=== PATIENT | female | born 1980 | race Caucasian/White ===

== ENCOUNTER 2017-09-22 20:31 | Emergency (ER) | payer OTHER ==
[2017-09-22 20:40] VITALS: BP 128/68; PULSE 86; TEMP 98.2; BMI 37.3
--- NOTE | 2017-09-22 20:44 | PDOC ---
History of Present Illness - General Chief Complaint: Vaginal Bleeding Stated Complaint: BLEEDING Time Seen by Provider: 09/22/17 20:44 History Source: Patient Exam Limitations: No Limitations - History of Present Illness Travel History: No Initial Comments: 09/22/17 21:25 Best Contact:[phone] PCP:Clinic Pmhx:N/A Pshx:N/A Allergies:NKDA FH:N/A Social Hx: Cigarettes/ 0 Alcohol/ 0 Drugs/0 LMP:07/18/2017 37-year-old female presents to the ER complaining of vaginal mild to moderate bleeding 20 minutes prior to her arrival without fever, chills, nausea/vomiting /diarrhea, weakness, neck pains, back pains, chest pain, shortness of breath, abdominal pains, bladder pressure, flank pains, urinary symptoms: Frequency/ urgency/hesitancy, hematuria. Past History - Past Medical History Allergies/Adverse Reactions: Allergies Allergy/AdvReac Type Severity Reaction Status Date / Time No Known Drug Allergies Allergy Verified 09/22/17 20:40 Home Medications: Ambulatory Orders Pnv with Ca,No.71/Iron/FA [ Vitamin Tablet] 1 each PO DAILY 02/20/13 Asthma: No Cancer: No Cardiac Disorders: No Diabetes: No HTN: No Seizures: No Thyroid Disease: No - Suicide/Smoking/Psychosocial Hx Smoking History: Never smoked Have you smoked in the past 12 months: No Information on smoking cessation initiated: No Hx Alcohol Use: No Drug/Substance Use Hx: No Hx Substance Use Treatment: No Review of Systems - Review of Systems Able to Perform ROS?: Yes Comments:: 09/22/17 21:31 CONSTITUTIONAL: Absent: fever, chills, diaphoresis, generalized weakness, malaise, loss of appetite HEENT: Absent: rhinorrhea, nasal congestion, throat pain, throat swelling, difficulty swallowing, mouth swelling, ear pain, eye pain, visual Changes CARDIOVASCULAR: Absent: chest pain, loss of consciousness, palpitations, irregular heart rate, peripheral edema RESPIRATORY: Absent: cough, shortness of breath, dyspnea with exertion, orthopnea, wheezing, stridor, hemoptysis GASTROINTESTINAL: Absent: abdominal pain, abdominal distension, nausea, vomiting, diarrhea, constipation, melena, hematochezia GENITOURINARY: +vaginal bleed Absent: dysuria, frequency, urgency, hesitancy, hematuria, flank pain, genital pain MUSCULOSKELETAL: Absent: myalgia, arthralgia, joint swelling SKIN: Absent: rash, itching, pallor HEMATOLOGIC/IMMUNOLOGIC: Absent: easy bleeding, easy bruising, lymphadenopathy, frequent infections ENDOCRINE: Absent: unexplained weight gain, unexplained weight loss, heat intolerance, cold intolerance Is the patient limited Bel[place]an proficient: No *Physical Exam - Vital Signs Last Vital Signs Temp Pulse Resp BP Pulse Ox 98.2 F 86 16 128/68 100 09/22/17 20:38 09/22/17 20:38 09/22/17 20:38 09/22/17 20:38 09/22/17 20:38 - Physical Exam Comments: 09/22/17 21:31 GENERAL: Well developed, well nourished. Awake and alert. No acute distress. HEENT: Normocephalic, atraumatic. PERRLA, EOMI. No conjunctival pallor. Sclera are non- icteric. Moist mucous membranes. Oropharynx is clear. NECK: Supple. Full ROM. No JVD. Carotid pulses 2+ and symmetric, without bruits. No thyromegaly. No lymphadenopathy. CARDIOVASCULAR: Regular rate and rhythm. No murmurs, rubs, or gallops. Distal pulses are 2+ and symmetric. PULMONARY: No evidence of respiratory distress. Lungs clear to auscultation bilaterally. No wheezing, rales or rhonchi. ABDOMINAL: Soft. Non-tender. Non-distended. No rebound or guarding. No organomegaly. Normoactive bowel sounds. MUSCULOSKELETAL Normal range of motion at all joints. No bony deformities or tenderness. No CVA tenderness. EXTREMITIES: No cyanosis. No clubbing. No edema. No calf tenderness. SKIN: Warm and dry. Normal capillary refill. No rashes. No jaundice. NEUROLOGICAL: Alert, awake, appropriate. Cranial nerves 2-12 intact. No deficits to light touch and temperature in face, upper extremities and lower extremities. No motor deficits in the in face, upper extremities and lower extremities. Normoreflexic in the upper and lower extremities. Normal speech. Toes are down- going bilaterally. Gait is normal without ataxia. PSYCHIATRIC: Cooperative. Good eye contact. Appropriate mood and affect. Pelvic: External genitalia normal without lesions. Vaginal vault is clear without blood or discharge. Cervix is long and closed. ED Treatment Course - LABORATORY CBC & Chemistry Diagram: 09/22/17 20:43 09/22/17 20:43 - RADIOLOGY Radiograph Interpretation: 09/22/17 23:22 Transvaginal ultrasound There is a single live intrauterine . Estimated gestation age is 8 weeks and 2 days. heart rate is 165 bpm. No cul-de-sac effusion. There is intact blood flow demonstrated to the ovaries. Arterial and venous spectra waveforms demonstrated. There is no evidence of torsion. Progress Note - Progress Note Progress Note: Patient is A- therefore she will be receiving program 1500 IUs this evening *DC/Admit/Observation/Transfer Diagnosis at time of Disposition: Threatened , Need for rhogam due to Rh negative mother - Discharge Dispostion Disposition: HOME Condition at time of disposition: Stable Decision to Admit order: No - Referrals Referrals: Feliciano Andrew MD [Staff Physician] - - Patient Instructions Printed Discharge Instructions: DI for Threatened Additional Instructions: Pelvic rest Increase fluids Be sure to follow-up with the requisition approver or the one listed on your discharge within 48 hours/ Dr. Andrew [phone] Return back to the emergency department for severe/persistent or worsening [place] [address].4 - Post Discharge Activity
--- NOTE | 2017-09-22 20:50 | PDOC ---
*Physical Exam - Vital Signs Last Vital Signs Temp Pulse Resp BP Pulse Ox 98.2 F 86 16 128/68 100 09/22/17 20:38 09/22/17 20:38 09/22/17 20:38 09/22/17 20:38 09/22/17 20:38 - Physical Exam Comments: 09/22/17 20:50 The patient was examined by [CHAPARRO Murrieta] under my direct supervision. I personally evaluated the patient. I concur with the above findings and the plan of care.
[2017-09-22 21:03] LABS: BASO % 0.2 % (0-2.0); EOS % 0.9 % (0-4.5); HEMATOCRIT 34.1 % (32.4-45.2); HEMOGLOBIN 11.6 GM/dL (10.7-15.3); LYMPH % 17.7 % (8-40); MCHC 34.1 g/dl (32.0-36.0); MEAN CELL VOLUME 84.8 fl (80-96); MEAN PLT VOLUME 8.1 fl (7.5-11.1); MONO % 7.4 % (3.8-10.2); NEUT % 73.8 % (42.8-82.8); PLATELET COUNT 341 K/MM3 (134-434); RBC 4.02 M/mm3 (3.60-5.2); RDW 14.6 % (11.6-15.6); WHITE BLOOD COUNT 11.5 K/mm3 (4.0-10.0)
[2017-09-22 21:29] LABS: ALBUMIN 3.6 g/dl (3.4-5.0); ANION GAP 9 (8-16); BILIRUBIN,TOTAL 0.3 mg/dL (0.2-1.0); BLOOD UREA NITROGEN 7 mg/dL (7-18); CALCIUM 8.8 mg/dL (8.5-10.1); CHLORIDE 103 mmol/L (98-107); CO2 24 mmol/L (21-32); CREATININE 0.5 mg/dL (0.55-1.02); GLUCOSE,RANDOM 84 mg/dL (74-106); POTASSIUM 3.6 mmol/L (3.5-5.1); SGOT/AST 18 U/L (15-37); SGPT/ALT 21 U/L (12-78); SODIUM 136 mmol/L (136-145); TOT PROT 7.6 g/dl (6.4-8.2)
[2017-09-22 21:44] LABS: ALK PHOS 92 U/L (45-117)
[2017-09-22] MEDS ORDERED: RHO(D) IMMUNE GLOBULIN 1,500 UNIT DISP.SYRIN IM ONE (23:26)
== END 2017-09-22 23:59 | disposition home or self-care (01) ==
LOC: JER 20:31
PROC: 3E023GC Introduction of Other Therapeutic Substance into Muscle, Percutaneous Approach (ICD-10-PCS; principal; 2017-09-22)
DX: O20.0 Threatened abortion (principal); Z3A.08 8 weeks gestation of pregnancy; O36.0111 Maternal care for anti-D [Rh] antibodies, first trimester, fetus 1
CPT/HCPCS: 36415; 76801-TC; 80053; 84702; 85025; 86850; 86900; 86901; 86999; 99281-25; J1561

== ENCOUNTER 2018-04-29 06:55 | Inpatient (IN) | payer OTHER ==
[2018-04-29 08:19] VITALS: BMI 42.4
[2018-04-29] MEDS ORDERED: CITRIC ACID/SODIUM CITRATE 30 ML UNIT-DOSE CUP PO ONE (08:25)
[2018-04-29] MEDS ORDERED: ELECTROLYTE-148 SOLN 1,000 ML IV SCH (08:30)
--- NOTE | 2018-04-29 08:30 | HP ---
Past Medical History - Admission Chief Complaint: RLTCS, BTL History of Present Illness: 38yo @ 39+wks here for RLTCS, BTL No VB/LOF. No ctx. +FM Preg c/b AMA, h/o C/S x 2 History Source: Patient Limitations to Obtaining History: Language Barrier - Past Medical History MEDICAL CLAIMS PROCESSOR: No: Alzheimer's, CVA, Dementia, Migraine, Multiple Sclerosis, Peripheral Neuropathy, Parkinson's, Seizure, Syncope, TIA, Vertigo, Other Cardiovascular: No: AFIB, Aneurysm, Aortic Insufficiency, Aortic Stenosis, CAD, CHF, Deep Vein Thrombosis, HTN, Hyperlipdemia, IN, Mitral Insufficiency, Mitral Stenosis, Murmur, Pulmonary Hypertension, Other Pulmonary: No: Asthma, Bronchitis, Cancer, COPD, O2 Dependent, Pneumonia, Previously Intubated, Pulmonary Embolus, Pulmonary Fibrosis, Sleep Apnea, Other Gastrointestinal: No: Ascites, Cancer, Constipation, Crohn's Disease, Diverticulitis, Diverticulosis, Esophageal Varices, Gastritis, GERD, GI Bleed, Hemorrhoids, Hiatal Hernia, Inflamatory Bowel Disease, Irritable Bowel Disease, Pancreatitis, Peptic Ulcer Disease, Ulcerative Colitis, Other ...: 4 ...Para: 2 ...Term: 2 ...: 0 ...Spon : 1 ...Induced : 0 ...Multiple Gestation: 0 ...LMP: 07/18/17 ... Weeks Gestation by Dates: 40.2 ...EDC by Dates: 04/27/18 ...EDC by Sono: 05/02/18 Heme/Onc: No: Anemia, B12 Deficiency, Bleeding Disorder, Cancer, Current Chemotherapy, Current Radiation Therapy, Hemochromatosis, Hypercoaguable State, Myeloproliferative Synd, Sickle Cell Disease, Sickle Cell Trait, Thrombocytopenia, Other Infectious Disease: No: AIDS, C-Diff, Herpes Zoster, HIV, MRSA, STD's, Tuberculosis, VREF, Other Psych: No: Addictions, Anxiety, Bipolar, Depression, Panic, Psychosis, Schizophrenia, Other Musculoskeletal: No: Bursitis, Chronic low back pain, Hemiparesis, Hemiplegia, Osteoarthritis, Paraplegia, Other Rheumatology: No: Fibromyalgia, Gout, Lupus, Rheumatoid Arthritis, Sarcoidosis, Vasculitis, Other ENT: No: Allergic Rhinitis, Sinusitis, Other - Past Surgical History Past Surgical History: Yes: Hx Myomectomy: No Hx Transabdominal Cerclage: No - Smoking History Smoking history: Never smoked Have you smoked in the past 12 months: No - Alcohol/Substance Use Hx Alcohol Use: No History of Substance Use: reports: None - Social History Usual Living Arrangement: Yes: Alone Home Medications - Allergies Allergies/Adverse Reactions: Allergies Allergy/AdvReac Type Severity Reaction Status Date / Time No Known Drug Allergies Allergy Verified 09/22/17 20:40 - Home Medications Home Medications: Ambulatory Orders Pnv with Ca,No.71/Iron/FA [ Vitamin Tablet] 1 each PO DAILY 02/20/13 Review of Systems - Review of Systems Constitutional: denies: No Symptoms, Chills, Diaphoresis, Fever, Lethargy, Loss of Appetite, Malaise, Night Sweats, Unintentional Wgt. Loss, Weakness, Other Cardiovascular: denies: No Symptoms, Chest Pain, Edema, Palpitations, Shortness of Breath, Other Gastrointestinal: denies: No Symptoms, Abdominal Pain, Bloating, Constipation, Diarrhea, Dysphagia, Indigestion, Melena, Nausea, Rectal Bleeding, Vomiting, Vomiting Blood, Other Genitourinary: denies: No Symptoms, Burning, Discharge, Dysuria, Flank Pain, Frequency, Hematuria, Incontinence, Lesions, Menses, Pain, Testicular Mass, Testicular Pain, Testicular Swelling, Urgency, Vaginal Bleeding, Other Physical Exam - Maternity Vital Signs: Vital Signs Temperature 98.5 F 04/29/18 07:19 Pulse Rate 89 04/29/18 07:19 Respiratory Rate 20 04/29/18 07:19 Blood Pressure 136/84 04/29/18 07:19 O2 Sat by Pulse Oximetry (%) Constitutional: Yes: Well Nourished Eyes: Yes: WNL - Abdominal Exam/OB Number of Fetuses: Single Presentation: Vertex Contractions: No Category: I Accelerations: Uniform Decelerations: None - Vaginal Exam/OB Vaginal Bleediing: No Speculum Exam: No Amniotic Membrane Status: Intact Presentation: Vertex/Position - Physical Exam Edema: No Assessment/Plan 38yo @ 39+wks here for RLTCS, BTL Admit to L&D NPO, IVFs Labs Ancef RIsk of procedure discussed including bleeding, infection, injury to surrounding tissue. Permanency of tubal ligation. Julia Parrish MD
[2018-04-29] MEDS ORDERED: morphine SULFATE/Preservative Free 0.5 MG/ML (1cc Syringe) ONE (10:04)
[2018-04-29] MEDS ORDERED: ceFAZolin SODIUM 1 GM VIAL ONE (10:18)
[2018-04-29] MEDS ORDERED: OXYTOCIN 10 UNITS/ML VIAL ONE (10:27)
[2018-04-29] MEDS ORDERED: OXYTOCIN 20 UNITS in 0.9% NS 20 UNIT/1,000 ML INFUS.BAG IV ONE (10:54)
[2018-04-29] MEDS ORDERED: IBUPROFEN 800 MG/8 ML IJ IVPB PRN (11:09)
[2018-04-29] MEDS ORDERED: METHYLERGONOVINE MALEATE 0.2 MG/1 ML AMP IM PRN (11:09)
--- NOTE | 2018-04-29 11:24 | OP ---
Operative Note - Note: Operative Date: 04/29/18 Pre-Operative Diagnosis: Prior , 39wks, Desires permanent sterilization Operation: RLTCS, BTL Findings: VMI, LOT, No nuchal or meconium. Apgars 9/9 Weight 8.0lbs. Normal tubes and ovaries. Post-Operative Diagnosis: Same as Pre-op Surgeon: Meli Parrish Almond Grinder: Emir Leong Anesthesia: Spinal Estimated Blood Loss (mls): 600 Operative Report Dictated: Yes
[2018-04-29] MEDS: ONDANSETRON 4 MG/2 ML VIAL IVPUSH PRN (11:49)
--- NOTE | 2018-04-29 14:26 | OP ---
DATE OF OPERATION: 04/29/2018 PREOPERATIVE DIAGNOSES: Prior section, a 39-week gestation, desires permanent sterilization. POSTOPERATIVE DIAGNOSES: Prior section, a 39-week gestation, desires permanent sterilization. PROCEDURE: Repeat low transverse section, bilateral tubal ligation. SURGEON: Meli Parrish MD BICYCLE SUBASSEMBLER: CHAPARRO Champagne ANESTHESIA: Spinal. ESTIMATED BLOOD LOSS: 600. IV FLUIDS: Per anesthesia record. URINE OUTPUT: 100 mL of clear urine at the end of the procedure. FINDINGS: Viable male , LOT position. No nuchal, no meconium. Weight 8 pounds even. Apgars 9, 9. Normal tubes and ovaries bilaterally. COMPLICATIONS: None. CONDITION: Stable to recovery. DESCRIPTION OF PROCEDURE: After appropriate consents were signed, the patient was taken to the operating room where spinal anesthesia was administered. She was placed in supine position. Liu catheter was inserted. The abdomen was prepped and draped in the normal sterile fashion. A time-out was performed confirming correct patient and procedure. A Pfannenstiel skin incision was made with a scalpel through to prior incision and carried through to the underlying layers until the fascia was nicked in the midline. The fascia was then extended bilaterally with the Bonilla scissors. The inferior aspect of the fascia was grasped with a Jelena clamp, tented upward, and the rectus muscles were dissected off bluntly and then manually with the Bonilla scissors. Attention was then paid to the superior aspect, which was taken down in a similar fashion. The muscles were in the midline with a scalpel. The peritoneum was then identified and entered bluntly. Bladder blade was inserted. The uterus was then incised in a low transverse fashion. Clear amniotic fluid was noted. The hysterotomy was extended manually. The infant's head was delivered without difficulty as were the shoulders and remaining body. The cord was clamped and cut, and the was handed off to the pediatric staff. The placenta was removed manually. The uterus was cleared of all clot and debris. The hysterotomy was prepared in a single layer with 0 Vicryl with good hemostasis. Attention was then paid to the adnexa for tubal ligation. The uterus was exteriorized, and the right fallopian tube was identified, grasped with a [place], and carried through to the fimbriated ends. The tube was then suture ligated with a 0 plain suture. Tubal segment was removed with the Metzenbaum scissors, and the tubal stumps were cauterized with the Bovie and noted to be hemostatic. Attention was then paid to the left fallopian tube, which was taken down in a similar fashion. There was bleeding after removal of the tubal stump. The area was then grasped with a Tammy clamp and then again suture ligated with another 0 Vicryl, which achieved hemostasis. The uterus and tubes were returned to the abdominal cavity. The hysterotomy was inspected and noted to be hemostatic. The tubal stumps were then revisualized and also noted to be hemostatic. The muscle was closed with 2-0 chromic. The fascia was closed with 0 Vicryl. The skin was closed with kp. Sponge, lap, and needle counts were correct x3. The patient was given Ancef at the start of the procedure. She tolerated the procedure well and was taken to the recovery room in stable condition. MD JAQUELIN RODRIGUEZ/[id number]
[2018-04-29] MEDS: OXYTOCIN 20 UNITS in 0.9% NS 20 UNIT/1,000 ML INFUS.BAG IV SCH (20:49)
[2018-04-29] MEDS: FERROUS SO4 325 MG TABLET (FP) PO SCH (22:11)
[2018-04-30] MEDS: OXYTOCIN 20 UNITS in 0.9% NS 20 UNIT/1,000 ML INFUS.BAG IV SCH (04:41)
[2018-04-30] MEDS: ONDANSETRON 4 MG/2 ML VIAL IVPUSH PRN (06:10)
--- NOTE | 2018-04-30 08:20 | PN ---
Progress Note (short form) - Note Progress Note: Anesthesia Post op/Pain Pt seen and examined S:Alert and awake comfortable O: Vital Signs Temperature 100.7 F H 04/30/18 06:00 Pulse Rate 109 H 04/30/18 06:00 Respiratory Rate 18 04/30/18 07:00 Blood Pressure 142/71 04/30/18 06:00 O2 Sat by Pulse Oximetry (%) 100 04/29/18 12:30 A/P S/P c section Doing well post op Carlton Frank MD
[2018-04-30 08:26] LABS: HEMATOCRIT 27.3 % (32.4-45.2); HEMOGLOBIN 9.6 GM/dL (10.7-15.3); LYMPH % 4.7 % (8-40); MCH 30.3 pg (25.7-33.7); MCHC 35.1 g/dl (32.0-36.0); MEAN CELL VOLUME 86.5 fl (80-96); MEAN PLT VOLUME 9.4 fl (7.5-11.1); MONO % 4.5 % (3.8-10.2); NEUT % 90.8 % (42.8-82.8); PLATELET COUNT 240 K/MM3 (134-434); RBC 3.16 M/mm3 (3.60-5.2); RDW 16.1 % (11.6-15.6); WHITE BLOOD COUNT 10.1 K/mm3 (4.0-10.0)
--- NOTE | 2018-04-30 09:17 | PN ---
Post Progress Note Post Day: 1 Type of Delivery: Repeat C/S Vital Signs: Vital Signs Temperature 100.1 F H 04/30/18 09:14 Pulse Rate 111 H 04/30/18 09:14 Respiratory Rate 20 04/30/18 09:14 Blood Pressure 135/82 04/30/18 09:14 O2 Sat by Pulse Oximetry (%) 100 04/29/18 12:30 Breast Exam: Yes: Soft Uterus: Yes: Fundus Firm Incision: Yes: Dressing dry and intact Abdomen/GI: Yes: Abdomen soft Lochia: Yes: Rubra Lochia, amount: Small Extremities: Yes: Calves non-tender Perineum: Yes: Intact Activity: Ambulating Assessment/Plan check labs oob reg diet pain control
[2018-04-30] MEDS: PRENATAL VITAMINS W/ FOLIC ACID TABLET (FP) PO SCH (09:46)
[2018-04-30] MEDS: FERROUS SO4 325 MG TABLET (FP) PO SCH ×2 (09:46→23:43)
[2018-04-30] MEDS ORDERED: BISACODYL 10 MG SUPP.RECT RC PRN (11:09)
[2018-04-30] MEDS: oxyCODONE HCL 5 MG TABLET PO PRN ×2 (11:20→23:43)
[2018-04-30] MEDS: ACETAMINOPHEN 325 MG TABLET (FP) PO PRN ×3 (11:21→23:44)
[2018-04-30] MEDS: SIMETHICONE 80 MG TAB.CHEW (FP) PO PRN ×3 (11:22→23:43)
[2018-04-30] MEDS: IBUPROFEN 600 MG TABLET (FP) PO PRN ×2 (15:16→23:43)
[2018-05-01] MEDS: OXYTOCIN 20 UNITS in 0.9% NS 20 UNIT/1,000 ML INFUS.BAG IV SCH (02:28)
[2018-05-01] MEDS: oxyCODONE HCL 5 MG TABLET PO PRN ×2 (03:48→15:41)
[2018-05-01] MEDS: SIMETHICONE 80 MG TAB.CHEW (FP) PO PRN ×3 (03:48→21:25)
[2018-05-01] MEDS: ACETAMINOPHEN 325 MG TABLET (FP) PO PRN ×3 (03:48→21:24)
[2018-05-01] MEDS: IBUPROFEN 600 MG TABLET (FP) PO PRN ×3 (03:48→21:24)
--- NOTE | 2018-05-01 07:13 | PN ---
Post Progress Note - Subjective Subjective: c/o pain scale 4/10 passing flatus bm not done Post Day: 2 Type of Delivery: Repeat C/S Vital Signs: Vital Signs Temperature 99.0 F 04/30/18 22:00 Pulse Rate 95 H 04/30/18 22:00 Respiratory Rate 18 04/30/18 22:00 Blood Pressure 133/87 04/30/18 22:00 O2 Sat by Pulse Oximetry (%) 100 04/29/18 12:30 Breast Exam: Yes: Soft, Other (Bf , no milk yet ). No: Engorged Uterus: Yes: Fundus Firm, Fundus below umbilicus, Non-tender Incision: Yes: Dressing dry and intact (to be removed ). No: Oozing Abdomen/GI: Yes: Abdomen soft, Abdominal Distention (obese abdomen . BSactive ) , Passing flatus, Tolerating PO (diet ) Lochia: Yes: Rubra Lochia, amount: Moderate Extremities: Yes: Calves non-tender, Edema (2+/2+ ) Perineum: Yes: Intact Activity: Ambulating - Labs Labs: CBC WBC 10.1 K/mm3 (4.0-10.0) H 04/30/18 07:10 RBC 3.16 M/mm3 (3.60-5.2) L 04/30/18 07:10 Hgb 9.6 GM/dL (10.7-15.3) L 04/30/18 07:10 Hct 27.3 % (32.4-45.2) L 04/30/18 07:10 MCV 86.5 fl (80-96) 04/30/18 07:10 MCH 30.3 pg (25.7-33.7) 04/30/18 07:10 MCHC 35.1 g/dl (32.0-36.0) 04/30/18 07:10 RDW 16.1 % (11.6-15.6) H 04/30/18 07:10 Plt Count 240 K/MM3 (134-434) 04/30/18 07:10 MPV 9.4 fl (7.5-11.1) 04/30/18 07:10 Absolute Neuts (auto) 9.1 K/mm3 (1.5-8.0) H 04/30/18 07:10 Neutrophils % 90.8 % (42.8-82.8) H 04/30/18 07:10 Lymphocytes % 4.7 % (8-40) L D 04/30/18 07:10 Monocytes % 4.5 % (3.8-10.2) 04/30/18 07:10 Eosinophils % 0.0 % (0-4.5) D 04/30/18 07:10 Basophils % 0.0 % (0-2.0) 04/30/18 07:10 Nucleated RBC % 0 % (0-0) 04/30/18 07:10 Problem List - Problems (1) delivery delivered Code(s): O82 - ENCOUNTER FOR DELIVERY WITHOUT INDICATION (2) Morbidly obese Code(s): E66.01 - MORBID (SEVERE) OBESITY DUE TO EXCESS CALORIES (3) Encounter for care after planned out of hospital delivery Code(s): Z39.2 - ENCOUNTER FOR ROUTINE FOLLOW-UP Assessment/Plan s/p repeat c/s btl , obese , stable Plan dulcolax suppository , if BM not done encourage deep breathing, ambulation & po fluids
[2018-05-01] MEDS: FERROUS SO4 325 MG TABLET (FP) PO SCH ×2 (10:44→21:24)
[2018-05-01] MEDS: PRENATAL VITAMINS W/ FOLIC ACID TABLET (FP) PO SCH (10:44)
[2018-05-01] MEDS ORDERED: DIPHTH,PERTUSS(ACELL),TET 0.5 ML DISP.SYRIN IM ONE (19:30)
--- NOTE | 2018-05-02 08:01 | PN ---
Post Progress Note - Subjective Subjective: Pain controlled. No flatus. Has been ambulating in the room but not the hallway Post Day: 3 Type of Delivery: Repeat C/S Vital Signs: Vital Signs Temperature 97.0 F L 05/01/18 20:35 Pulse Rate 89 05/01/18 20:35 Respiratory Rate 20 05/01/18 20:35 Blood Pressure 153/91 05/01/18 20:35 O2 Sat by Pulse Oximetry (%) 100 04/29/18 12:30 Uterus: Yes: Fundus Firm, Fundus above umbilicus Incision: Yes: Dressing dry and intact, Parminder intact Abdomen/GI: Yes: Abdomen soft, Other (+bowel sounds) Lochia: Yes: Rubra Lochia, amount: Small Extremities: Yes: Calves non-tender Perineum: Yes: Intact Activity: Ambulating - Labs Labs: CBC WBC 10.1 K/mm3 (4.0-10.0) H 04/30/18 07:10 RBC 3.16 M/mm3 (3.60-5.2) L 04/30/18 07:10 Hgb 9.6 GM/dL (10.7-15.3) L 04/30/18 07:10 Hct 27.3 % (32.4-45.2) L 04/30/18 07:10 MCV 86.5 fl (80-96) 04/30/18 07:10 MCH 30.3 pg (25.7-33.7) 04/30/18 07:10 MCHC 35.1 g/dl (32.0-36.0) 04/30/18 07:10 RDW 16.1 % (11.6-15.6) H 04/30/18 07:10 Plt Count 240 K/MM3 (134-434) 04/30/18 07:10 MPV 9.4 fl (7.5-11.1) 04/30/18 07:10 Absolute Neuts (auto) 9.1 K/mm3 (1.5-8.0) H 04/30/18 07:10 Neutrophils % 90.8 % (42.8-82.8) H 04/30/18 07:10 Lymphocytes % 4.7 % (8-40) L D 04/30/18 07:10 Monocytes % 4.5 % (3.8-10.2) 04/30/18 07:10 Eosinophils % 0.0 % (0-4.5) D 04/30/18 07:10 Basophils % 0.0 % (0-2.0) 04/30/18 07:10 Nucleated RBC % 0 % (0-0) 04/30/18 07:10 Assessment/Plan 38yo s/p RLTCS, BTL, POD#3 Routine PP care Labs reviewed Encouraged more ambulation Anticipate d/c to home today if she passes flatus, if not, POD#4 Julia Parrish MD
[2018-05-02 08:06] LABS: BASO % 0.1 % (0-2.0); EOS % 1.9 % (0-4.5); HEMATOCRIT 22.4 % (32.4-45.2); HEMOGLOBIN 7.6 GM/dL (10.7-15.3); LYMPH % 9.9 % (8-40); MCH 30.1 pg (25.7-33.7); MCHC 34.1 g/dl (32.0-36.0); MEAN CELL VOLUME 88.4 fl (80-96); MEAN PLT VOLUME 8.6 fl (7.5-11.1); MONO % 7.3 % (3.8-10.2); NEUT % 80.8 % (42.8-82.8); PLATELET COUNT 237 K/MM3 (134-434); RBC 2.54 M/mm3 (3.60-5.2); RDW 16.7 % (11.6-15.6); WHITE BLOOD COUNT 7.8 K/mm3 (4.0-10.0)
[2018-05-02] MEDS: FERROUS SO4 325 MG TABLET (FP) PO SCH (10:18)
[2018-05-02] MEDS: PRENATAL VITAMINS W/ FOLIC ACID TABLET (FP) PO SCH (10:18)
[2018-05-02 15:03] VITALS: BP 150/90; PULSE 92; TEMP 98.9
--- NOTE | 2018-05-06 10:56 | DS ---
Physical Examination Vital Signs: Vital Signs Temperature 98.9 F 05/02/18 10:00 Pulse Rate 92 H 05/02/18 10:00 Respiratory Rate 20 05/02/18 10:00 Blood Pressure 150/90 05/02/18 10:00 O2 Sat by Pulse Oximetry (%) 100 04/29/18 12:30 Constitutional: Yes: Well Nourished, No Distress, Calm Eyes: Yes: WNL, Conjunctiva Clear, EOM Intact HENT: Yes: WNL, Atraumatic, Normocephalic Neck: Yes: WNL, Supple, Trachea Midline Cardiovascular: Yes: WNL, Regular Rate and Rhythm Respiratory: Yes: WNL, Regular, CTA Bilaterally Gastrointestinal: Yes: WNL, Normal Bowel Sounds Musculoskeletal: Yes: WNL Extremities: Yes: WNL Edema: No Integumentary: Yes: WNL Neurological: Yes: WNL, Alert, Oriented ...Motor Strength: WNL Psychiatric: Yes: WNL Labs: CBC, BMP 05/02/18 06:30 Discharge Summary Reason For Visit: REPEAT C SECTION Procedures: Principal: RLTCS, BTL Hospital Course: Patient presented for RLTCS, BTL She underwent an uncomplicated RLTCS and BTL She met all postoperative milestones and was discharged home on POD#3 Meli Parrish MD Condition: Stable - Instructions Diet, Activity, Other Instructions: Regular Diet Referrals: Meli Parrish MD [Staff Physician] - Disposition: HOME - Home Medications Comprehensive Discharge Medication List: Ambulatory Orders Pnv with Ca,No.71/Iron/FA [ Vitamin Tablet] 1 each PO DAILY 02/20/13 Ibuprofen 600 mg PO Q6H PRN #30 tablet 05/01/18 Oxycodone HCl/Acetaminophen [Percocet 5-325 mg Tablet -] 1 - 2 tab PO Q6H PRN # 15 tab MDD 4 05/01/18
--- NOTE | 2018-05-06 15:59 | PATH ---
Surgical Pathology Report Patient Name: MARISELA SU Med. Rec. #: [id number] /Age/Gender: 1980 (Age: 38) / F Account: [id number] Location: [facility] OBS/SIZE MAKER Taken: 04/29/2018 Received: 04/30/2018 Reported: 05/06/2018 Physicians: Meli Parrish Specimen(s) Received A: PLACENTA B: PORTION OF RIGHT FALLOPIAN TUBE C: PORTION OF LEFT FALLOPIAN TUBE Clinical History , x2, D&C 2013, cholecystectomy Final Diagnosis A. PLACENTA, SECTION: 629 G THIRD TRIMESTER PLACENTA WITH TRIVASCULAR UMBILICAL CORD AND UNREMARKABLE PLACENTAL MEMBRANES. B. FALLOPIAN TUBE, RIGHT, TUBAL LIGATION: FULL LUMINAL PORTION OF UNREMARKABLE FALLOPIAN TUBE. C. FALLOPIAN TUBE, LEFT, TUBAL LIGATION: FULL LUMINAL PORTION OF UNREMARKABLE FALLOPIAN TUBE. Electronically Signed Esperanza Medina M.D. Gross Description A. The specimen is received fresh labeled placenta and is a 629 gram, 13.5 x 16.0 x 3.3 cm. placenta with attached membranes and umbilical cord. The attached membranes are weeks, translucent with focal opacities and insert marginally. The umbilical cord measures 64 cm. in length and averages 2.0 cm. in diameter. The cord inserts eccentrically, 2.5 cm. to the nearest margin. No true knots or strictures are identified. Cut surface of the umbilical cord reveals 3 vessels and abundant Carlton's jelly. The surface is lacy blue with moderate fibrin deposition and appropriate caliber vessels. The maternal surface is red-brown with focal defects. Sectioning reveals red-brown, spongy parenchyma. No lesions are identified. Game Preserve Manager sections are submitted in three cassettes as follows: 1- membrane rolls and umbilical cord; 2-3- full thickness sections of placenta. B. Received in formalin labeled "portion of right fallopian tube," is a 0.7 cm in length portion of fallopian tube. No fimbria are present. The outer surface is weeks-tavarez and smooth. Sectioning reveals an unremarkable lumen. Game Preserve Manager sections are submitted in one cassette. C. See been formalin labeled "portion of left fallopian tube," is a 0.6 cm in length portion of fallopian tube. No fimbria are present. The outer surface is weeks-tavarez and smooth. Sectioning reveals an unremarkable lumen. The specimen is bisected and entirely submitted in one cassette. 05/03/2018 [facility]05/03/2018
== END 2018-05-02 15:30 | disposition home or self-care (01) | DRG 540 ==
LOC: JLDR 06:55 → J3W 12:30
PROVIDERS: ADMIT Obstetrics & Gynecology; ATTEND Obstetrics & Gynecology
PROC: 10D00Z1 Extraction of Products of Conception, Low, Open Approach (ICD-10-PCS; principal; 2018-04-29)
PROC: 0UB70ZZ Excision of Bilateral Fallopian Tubes, Open Approach (ICD-10-PCS; 2018-04-29)
PROC: 3E0334Z Introduction of Serum, Toxoid and Vaccine into Peripheral Vein, Percutaneous Approach (ICD-10-PCS; 2018-04-29)
DX: O34.211 Maternal care for low transverse scar from previous cesarean delivery (principal); N85.8 Other specified noninflammatory disorders of uterus; Z3A.39 39 weeks gestation of pregnancy; Z30.2 Encounter for sterilization; O99.213 Obesity complicating pregnancy, third trimester; E66.01 Morbid (severe) obesity due to excess calories; Z68.41 Body mass index [BMI] 40.0-44.9, adult; Z29.13 Encounter for prophylactic Rho(D) immune globulin; Z37.0 Single live birth
CPT/HCPCS: 36415; 85025; 85461; 86999; 88302-TC; 88307-TC; 90715

== ENCOUNTER 2018-05-07 17:28 | Emergency (ER) | payer OTHER ==
--- NOTE | 2018-05-07 17:36 | PDOC ---
Rapid Medical Evaluation Chief Complaint: Blood Pressure Problem Time Seen by Provider: 05/07/18 17:33 Medical Evaluation: Allergies Allergy/AdvReac Type Severity Reaction Status Date / Time No Known Drug Allergies Allergy Verified 09/22/17 20:40 05/07/18 17:34 I have performed a brief in person evaluation of this patient. The patient's CC: Hypertension HPI: Pt is a 38 YO female who delivered via C section on 04/29 and has HTN and LE edema. PE: Skin: Clear Heart: RRR Lungs: Clear MS. moves all extremities without difficulty Neuro: Alert and oriented Psch: appropriate affect Basic labs were ordered. The patient will proceed to main ED for further evaluation. Discharge Disposition - Diagnosis Hypertension Qualifiers: Hypertension type: unspecified Qualified Code(s): I10 - Essential (primary) hypertension - Referrals - Patient Instructions - Post Discharge Activity
[2018-05-07 17:38] VITALS: TEMP 99.2; BMI 39.6
[2018-05-07 18:13] LABS: BASO % 0.6 % (0-2.0); EOS % 2.7 % (0-4.5); HEMATOCRIT 27.2 % (32.4-45.2); HEMOGLOBIN 9.2 GM/dL (10.7-15.3); LYMPH % 10.9 % (8-40); MCH 29.9 pg (25.7-33.7); MCHC 33.8 g/dl (32.0-36.0); MEAN CELL VOLUME 88.4 fl (80-96); MEAN PLT VOLUME 7.1 fl (7.5-11.1); MONO % 5.5 % (3.8-10.2); NEUT % 80.3 % (42.8-82.8); PLATELET COUNT 468 K/MM3 (134-434); RBC 3.08 M/mm3 (3.60-5.2); RDW 16.8 % (11.6-15.6); WHITE BLOOD COUNT 7.8 K/mm3 (4.0-10.0)
[2018-05-07 18:45] LABS: ALBUMIN 2.9 g/dl (3.4-5.0); ALK PHOS 116 U/L (45-117); ANION GAP 9 MMOL/L (8-16); BILIRUBIN,TOTAL 0.3 mg/dL (0.2-1); BLOOD UREA NITROGEN 8 mg/dL (7-18); CHLORIDE 111 mmol/L (98-107); CO2 23 mmol/L (21-32); CREATININE 0.4 mg/dL (0.55-1.3); GLUCOSE,RANDOM 77 mg/dL (74-106); POTASSIUM 3.7 mmol/L (3.5-5.1); SGOT/AST 25 U/L (15-37); SGPT/ALT 22 U/L (13-61); SODIUM 143 mmol/L (136-145); TOT PROT 6.6 g/dl (6.4-8.2)
--- NOTE | 2018-05-07 19:48 | PDOC ---
History of Present Illness - General Chief Complaint: Blood Pressure Problem Stated Complaint: Blood Pressure Problem Time Seen by Provider: 05/07/18 17:33 - History of Present Illness Initial Comments: The patient is a 38F s/p C/S on 04/29/2018 who presents for evaluation of asymptomatic HTN and BLE swelling from her OB's office today. The patient denies any reported PMH or medications. She states she was at her scheduled post visit, her BP was noted to be elevated to SBP 150s and she was sent to the ED for further evaluation. She also endorses BLE swelling to mid-broderick which she noted began post-. Denies LE rash, pain, sensation change, redness, or warmth. Denies changes in vision, chest pain, SIMMONS, trouble breathing, abdominal pain, N/V /C/D. 05/07/18 21:07 Past History - Past Medical History Allergies/Adverse Reactions: Allergies Allergy/AdvReac Type Severity Reaction Status Date / Time No Known Drug Allergies Allergy Verified 05/07/18 19:37 Home Medications: Ambulatory Orders Labetalol HCl [Normodyne -] 100 mg PO BID 30 Days #60 tablet 05/07/18 Asthma: No Cancer: No Cardiac Disorders: No COPD: No Diabetes: No HTN: No Seizures: No Thyroid Disease: No - Immunization History Immunization Up to Date: Yes - Suicide/Smoking/Psychosocial Hx Smoking History: Never smoked Have you smoked in the past 12 months: No Information on smoking cessation initiated: No Hx Alcohol Use: No Drug/Substance Use Hx: No Hx Substance Use Treatment: No Review of Systems - Review of Systems Able to Perform ROS?: Yes Comments:: GENERAL/CONSTITUTIONAL: No fever or chills. No weakness HEAD, EYES, EARS, NOSE AND THROAT: No change in vision. No ear pain or discharge. No sore throat CARDIOVASCULAR: No chest pain or shortness of breath RESPIRATORY: Denies cough, hemoptysis GASTROINTESTINAL: No nausea, vomiting, diarrhea or constipation GENITOURINARY: No dysuria, frequency, or change in urination MUSCULOSKELETAL: +post- BLE swelling to mid broderick SKIN: No rash NEUROLOGIC: No headache, vertigo, loss of consciousness, or change in strength/ sensation ENDOCRINE: No increased thirst. No abnormal weight change HEMATOLOGIC/LYMPHATIC: No anemia, easy bleeding, or history of blood clots ALLERGIC/IMMUNOLOGIC: No hives or skin allergy 05/07/18 22:28 *Physical Exam - Vital Signs Last Vital Signs Temp Pulse Resp BP Pulse Ox 99.2 F 89 17 153/83 100 05/07/18 17:34 05/07/18 17:34 05/07/18 17:34 05/07/18 17:34 05/07/18 17:34 - Physical Exam Comments: GENERAL: Awake, alert, and fully oriented, in no acute distress HEAD: No signs of trauma, normocephalic, atraumatic EYES: PERRLA, EOMI, sclera anicteric, conjunctiva clear ENT: Hearing grossly normal, nares patent, oropharynx clear without exudates. Moist mucosa LUNGS: No distress, speaks full sentences, clear to auscultation bilaterally HEART: Regular rate and rhythm, normal S1 and S2, no murmurs appreciated, peripheral pulses normal and equal bilaterally ABDOMEN: Soft, nontender, normoactive bowel sounds. No guarding, no rebound EXTREMITIES: Mild BLE swelling to mid-broderick w/o erythema or wound; otherwise normal inspection, Normal range of motion NEUROLOGICAL: Cranial nerves II through XII grossly intact. Normal speech, normal gait, no focal sensorimotor deficits SKIN: Warm, Dry, normal turgor 05/07/18 22:28 Moderate Sedation - Procedure Monitoring Vital Signs: Procedure Monitoring Vital Signs Temperature 99.2 F 05/07/18 17:34 Pulse Rate 89 05/07/18 17:34 Respiratory Rate 17 05/07/18 17:34 Blood Pressure 153/83 05/07/18 17:34 O2 Sat by Pulse Oximetry (%) 100 05/07/18 17:34 ED Treatment Course - LABORATORY CBC & Chemistry Diagram: 05/07/18 18:00 05/07/18 18:00 - ADDITIONAL ORDERS Additional order review: Laboratory Results 05/07/18 18:00 Sodium 143 Potassium 3.7 Chloride 111 H Carbon Dioxide 23 Anion Gap 9 BUN 8 Creatinine 0.4 L Creat Clearance w eGFR > 60 Random Glucose 77 Calcium 8.0 L Total Bilirubin 0.3 AST 25 ALT 22 Alkaline Phosphatase 116 Total Protein 6.6 Albumin 2.9 L 05/07/18 18:00 RBC 3.08 L MCV 88.4 MCHC 33.8 RDW 16.8 H MPV 7.1 L D Neutrophils % 80.3 Lymphocytes % 10.9 Monocytes % 5.5 Eosinophils % 2.7 Basophils % 0.6 D Medical Decision Making - Medical Decision Making The patient is a 38F who presents for evaluation for high blood pressure s/p C/ S 04/29/2018 ED Course CMP, CBC, UA No leukocytosis Asymptomatic anemia, Hbg 9.2 No EDGARD Lytes wnl LFTs wnl UA w/ 3+ LE, 2+ proteinuria, micro pending WBC 273 No dysuria 05/07/18 22:08 Discussed pt w/ OB, will start Labetalol and pt will f/u PCP and OB Plan for D/C w/ said f/u Rx sent to pt's pharmacy Discharge instructions and return precautions given Patient in agreement and verbalized understanding Dispo: home *DC/Admit/Observation/Transfer Diagnosis at time of Disposition: Hypertension Qualifiers: Hypertension type: unspecified Qualified Code(s): I10 - Essential (primary) hypertension - Discharge Dispostion Disposition: HOME Condition at time of disposition: Stable Decision to Admit order: No - Prescriptions Prescriptions: Labetalol HCl [Normodyne -] 100 mg PO BID 30 Days #60 tablet - Referrals - Patient Instructions Printed Discharge Instructions: DI for High Blood Pressure Additional Instructions: You were seen in the Emergency Department for evaluation of hypertension. Your blood pressure was found to be elevated, but not emergently so. Review the handout provided at discharge. Follow up with your primary care physician and be sure to discuss your blood pressure at that visit. A prescription for Labetalol 100mg twice a day was sent to the pharmacy that you specified. Take as directed. Return to the Emergency Department if you develop fevers/chills, chest pain, blurry vision, trouble breathing, vomiting, diarrhea, or any new/concerning symptoms. - Post Discharge Activity Forms/Work/School Notes: Back to Work
[2018-05-07] MEDS ORDERED: ACETAMINOPHEN 325 MG TABLET (FP) PO ONE (20:01)
[2018-05-07] MEDS ORDERED: ACETAMINOPHEN 325 MG TABLET (FP) ONE (20:07)
[2018-05-07] MEDS ORDERED: SODIUM CHLORIDE 0.9% 500 ML INFUS.BAG IV ONE (20:44)
--- NOTE | 2018-05-07 20:48 | PDOC ---
Attending Attestation - HPI HPI: 05/07/18 22:39 38 YOF with no significant PMH, one week , who was sent in by [address] [place] [address] for hypertension evaluation. Patients blood pressure at [facility] was found to be 150/110. Patient was seen by an RESOURCES REPRESENTATIVE and referred to the ER for blood pressure management. Patient was discharged from this ER on May 02, and was also found to be hypertensive then but no meds were prescribed. Patient admits to having a mild frontal headache earlier today, which resolved after Tylenol. Patient denies any SOB, CP, or N/V. Allergies: NKA Past surgical history: Social history: No reported alcohol, drug or cigarette use. - Physicial Exam PE: 05/07/18 22:40 ADULT EXAM GENERAL: Awake, alert, and fully oriented, in no acute distress LUNGS: Breath sounds equal, clear to auscultation bilaterally. No wheezes, and no crackles HEART: Regular rate and rhythm, normal S1 and S2, no murmurs, rubs or gallops ABDOMEN: Soft, normoactive bowel sounds. No guarding, no rebound. No masses. (+) scar with no erythema or purulence. (+) Surgical site is clean. EXTREMITIES: Normal range of motion. No clubbing or cyanosis. No cords, erythema , or tenderness (+) Lower leg extremity. (+) Pedal edema. NEUROLOGICAL: Cranial nerves II through XII grossly intact. Normal speech, normal gait SKIN: Warm, Dry, normal turgor, no rashes or lesions noted. <Jasmine Sims - Last Filed: 05/07/18 22:39> - Resident Resident Name: Jasvir Chu - ED Attending Attestation I have performed the following: I have examined & evaluated the patient, The case was reviewed & discussed with the resident, I agree w/resident's findings & plan, Exceptions are as noted - HPI HPI: 05/07/18 20:48 38-year-old female who had a approximately 1 week ago, was seen by her ASSISTANT WOMEN[employer]ET[employer] COACH today and sent to the emergency department for her elevated blood pressure and lower extremity edema. - Medical Decision Making 05/07/18 20:49 05/08/18 00:[address] Garcia and the patient was started on labetalol 100 mg twice a day. Patient has no headache at this time, no nausea, vomiting, no visual changes,no cp and no sob Patient does need to follow-up with Dr. Larios's this Sunday. Prescription was sent to her pharmacy for labetalol. 100mg BID In reviewing old records, became apparent that she has had a blood pressure in the range of 150/90 for the past couple weeks <Kiersten Chandler - Last Filed: 05/08/18 00:51>
[2018-05-07 21:23] VITALS: BP 150/97; PULSE 88
[2018-05-07 21:28] LABS: URINE APPEARANCE CLOUDY; URINE BILIRUBIN NEGATIVE (<2.0 mg/dL); URINE COLOR RED; URINE GLUCOSE (UA) NEGATIVE (NEGATIVE); URINE KETONE NEGATIVE (NEGATIVE); URINE LEUK ESTERASE 3+ (NEGATIVE); URINE NITRITE NEGATIVE (NEGATIVE); URINE PROTEIN 2+ (NEGATIVE); URINE UROBILINOGEN NEGATIVE mg/dL (0.2-1.0)
[2018-05-07 22:15] LABS: URINE BACTERIA RARE /hpf (NONE SEEN); URINE MUCUS RARE
[2018-05-07] MEDS ORDERED: LABETALOL HCL 100 MG TABLET (FP) PO ONE (22:31)
== END 2018-05-07 23:00 | disposition home or self-care (01) ==
LOC: JER 17:28
DX: O13.5 Gestational [pregnancy-induced] hypertension without significant proteinuria, complicating the puerperium (principal); O14.05 Mild to moderate pre-eclampsia, complicating the puerperium
CPT/HCPCS: 36415; 80053; 81003; 81015; 85025; 99284-25

== ENCOUNTER 2023-05-18 15:27 | Emergency (ER) | payer OTHER ==
[2023-05-18 15:46] VITALS: PULSE 77; TEMP 98.5; BMI 38.4
[2023-05-18] MEDS ORDERED: ONDANSETRON 4 MG/2 ML VIAL IVPUSH ONE (18:06)
[2023-05-18] MEDS ORDERED: SODIUM CHLORIDE 0.9% 500 ML INFUS.BAG IV ONE (18:06)
[2023-05-18] MEDS ORDERED: ONDANSETRON 4 MG/2 ML VIAL ONE (18:43)
[2023-05-18 18:54] LABS: BASO % 0.4 % (0-2.0); EOS % 0.4 % (0-4.5); HEMATOCRIT 33.8 % (32.4-45.2); LYMPH % 15.4 % (8-40); MCH 25.4 pg (25.7-33.7); MCHC 32.6 g/dl (32.0-36.0); MEAN PLT VOLUME 7.8 fl (7.5-11.1); NEUT % 79.8 % (42.8-82.8); PLATELET COUNT 390 10^3/uL (134-434); RBC 4.34 M/mm3 (3.60-5.2); RDW 17.1 % (11.6-15.6); WHITE BLOOD COUNT 10.3 K/mm3 (4.0-10.0)
[2023-05-18 19:19] LABS: BLOOD UREA NITROGEN 7.6 mg/dL (7-18)
[2023-05-18 19:22] LABS: CREATININE 0.6 mg/dL (0.55-1.3)
[2023-05-18 19:23] LABS: BILIRUBIN,TOTAL 0.7 mg/dL (0.2-1); TOT PROT 8.5 g/dl (6.4-8.2)
[2023-05-18 19:52] LABS: INR 1.18 (0.83-1.09); PROTHROMBIN TIME (PATIENT) 13.7 SEC (9.7-13.0)
[2023-05-18 20:04] LABS: CALCIUM 8.8 mg/dL (8.5-10.1)
[2023-05-18 20:05] LABS: BLOOD UREA NITROGEN 6.6 mg/dL (7-18)
[2023-05-18 20:08] LABS: CREATININE 0.5 mg/dL (0.55-1.3)
[2023-05-18 21:30] VITALS: BP 140/78; RESP 20
== END 2023-05-18 21:32 | disposition home or self-care (01) ==
LOC: JER 15:27
PROC: 3E033NZ Introduction of Analgesics, Hypnotics, Sedatives into Peripheral Vein, Percutaneous Approach (ICD-10-PCS; principal; 2023-05-18)
DX: R00.2 Palpitations (principal); R51.9 Headache, unspecified; R11.0 Nausea
CPT/HCPCS: 36415; 71046-TC-FY; 80048; 80053; 82962; 83690; 84443; 84484; 84703; 85025; 85610; 93005; 93010; 99285-25